=== PATIENT | female | born 1995 | race Asian ===

== ENCOUNTER 2022-04-17 16:51 | Emergency (ER) | payer OTHER ==
[~2022-04-17] VITALS: Ht 160 cm; Wt 61.2 kg
[2022-04-17] MEDS ORDERED: SODIUM CHLORIDE 0.9% 1000ML 1,000 ML IV STA (17:16)
[2022-04-17] MEDS ORDERED: ONDANSETRON HCL INJ 2MG/ML 2ML 2 MG/ML VIAL IV STA (17:16)
[2022-04-17] MEDS ORDERED: MECLIZINE HCL 12.5 MG TAB PO ONE (17:30)
[2022-04-17 17:48] LABS: BASOPHILS % 0.1 % (0.0-1.0); HEMATOCRIT 42.5 % (34.2-44.1); HEMOGLOBIN 13.7 g/dL (12.0-16.0); LYMPHOCYTES # (AUTO) 1.3 (1.0-3.2); LYMPHOCYTES % 14.1 % (18.0-39.1); MEAN CORPUSCULAR HEMOGLOBIN 30.3 pg (28-32); MEAN CORPUSCULAR HGB CONC 32.2 g/dL (31-35); MONOCYTES # (AUTO) 0.1 (0.2-0.8); MONOCYTES % 0.8 % (4.4-11.3); NEUTROPHILS # (AUTO) 7.8 (2.1-6.9); NEUTROPHILS % 84.7 % (38.7-80.0); PLATELET COUNT 358 x10e3/uL (140-360); RED BLOOD COUNT 4.52 x10e6/uL (3.6-5.1); RED CELL DISTRIBUTION WIDTH 11.7 % (11.7-14.4)
[2022-04-17 17:59] LABS: ALANINE AMINOTRANSFERASE 18 IU/L (0-55); ALBUMIN 4.2 g/dL (3.5-5.0); ALKALINE PHOSPHATASE 64 IU/L (40-150); ANION GAP 15.1 mmol/L (8-16); BLOOD UREA NITROGEN 13 mg/dL (7-26); BUN/CREATININE RATIO 16 (6-25); CALCIUM 9.3 mg/dL (8.4-10.2); CARBON DIOXIDE 22 mmol/L (22-29); CHLORIDE 106 mmol/L (98-107); CREATINE KINASE 57 IU/L (29-168); CREATININE, SERUM 0.83 mg/dL (0.57-1.11); GLUCOSE 223 mg/dL (74-118); POTASSIUM 4.1 mmol/L (3.5-5.1); SODIUM 139 mmol/L (136-145)
[2022-04-17 18:15] LABS: COLOR,URINE COLORLESS (YELLOW)
[2022-04-17 18:16] LABS: CLARITY,URINE CLEAR (CLEAR); KETONES,URINE NEGATIVE (NEGATIVE); LEUKOCYTE ESTERASE ,URINE NEGATIVE (NEGATIVE); NITRITE,URINE NEGATIVE (NEGATIVE); PROTEIN,URINE DIPSTICK NEGATIVE (NEGATIVE); URINE UROBILINOGEN 0.2 mg/dL (0.2 - 1)
[2022-04-17 18:17] LABS: AMPHETAMINES SCREEN,URINE NEGATIVE (NEGATIVE); BENZODIAZEPINES SCREEN,URINE NEGATIVE (NEGATIVE); PHENCYCLIDINE SCREEN,URINE NEGATIVE (NEGATIVE)
== END 2022-04-17 19:15 | disposition home or self-care (01) ==
LOC: ER 17:18
DX: R42 Dizziness and giddiness (principal); E11.65 Type 2 diabetes mellitus with hyperglycemia; R20.2 Paresthesia of skin
CPT/HCPCS: 36415; 70450; 71046; 80053; 80307; 81001; 81025; 82550; 82553; 84484; 85025; 93005; 99284; J2405; J7030; J8597